=== PATIENT | female | born 1935 | race Caucasian/White ===

== ENCOUNTER 2018-07-03 11:36 | Outpatient (CLI) | payer MEDICARE, BC ==
--- NOTE | 2018-07-03 12:40 | CT ---
CT HEAD WITH AND WITHOUT CONTRAST: INDICATIONS: intractable headache. FINDINGS: There is age appropriate size of the ventricular system. Encephalomalacia of the right frontal lobe is present, and there is mild chronic ischemic disease of the cerebral white matter. There is no mas s producing intraaxial enhancement. The calvarium is intact. There is a focal, round hypodensity of the posterior left lentiform nucleus, which may relate to a di lated perivascular space versus a remote lacunar infarction. IMPRESSION: 1. Right frontal encephalomalacia. 2. Mild chronic ischemic disease. 3. No pathologic intraaxial enhancement. POS: FELICITAS
== END 2018-07-03 11:37 | disposition home or self-care (01) ==
LOC: BICCT 11:36
PROVIDERS: ATTEND Nurse Practitioner Acute Care
DX: R51 Headache (principal); G93.89 Other specified disorders of brain
CPT/HCPCS: 70470; 82565

== ENCOUNTER 2023-03-06 14:06 | Outpatient (CLI) | payer MEDICARE | END 2023-03-06 14:07 | disposition home or self-care (01) | LOC: BICRAD 14:06 | PROVIDERS: ATTEND Nurse Practitioner Family | DX: M47.816 Spondylosis without myelopathy or radiculopathy, lumbar region (principal); M47.812 Spondylosis without myelopathy or radiculopathy, cervical region | CPT/HCPCS: 72052; 72120 ==